=== PATIENT | female | born 1965 | race African-American/Black ===

== ENCOUNTER → 2018-03-23 | Day surgery (SDC) | payer OTHER ==
[2018-03-09 11:19] VITALS: BMI 30.7
[~2018-03-23] MED LIST: BUPIVACAINE HCL/PF (5 MG/ML) 30 ML VIAL IJ ONE; CEFAZOLIN 2 GM in DEXTROSE 5%-WATER - 100 ML IVPB ONE; DEXAMETHASONE SOD PHOSPHATE 4 MG/1 ML VIAL ONE; DEXAMETHASONE SOD PHOSPHATE/PF 10 MG/ML SDV ONE; GABAPENTIN 300 MG CAPSULE (FP) ONE; GABAPENTIN 300 MG CAPSULE (FP) PO STA; LIDOCAINE 1%/EPI 1:100000 (20 ML MULTI DOSE VIAL) ONE; LIDOCAINE HCL/PF 2% SDV 5ML VIAL ONE; MIDAZOLAM HCL 2 MG/2 ML SINGLE DOSE VIAL ONE; ONDANSETRON 4 MG/2 ML VIAL ONE; PROPOFOL 20 ML ONE; SUCCINYLCHOLINE CHLORIDE 200 MG/10 ML VIAL ONE; THROMBIN (BOVINE) 5,000 UNIT VIAL TP ONE; fentaNYL CITRATE 250 MCG/5 ML VIAL ONE; oxyCODONE HCL 10 MG SUSTAINED ACTING TABLET ONE; oxyCODONE HCL 10 MG SUSTAINED ACTING TABLET PO STA
--- NOTE | 2018-03-23 07:31 | HP ---
History & Physical Update - History History: No Change - Physical Physical: No Change - Assessment Assessment: No Change - Plan Plan: No Change (Initial H&P completed on 03/09/2018 by Aneta Patel NP. No new complaints or medications.)
--- NOTE | 2018-03-23 09:10 | PN ---
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 Pt evaluated in holding area, consented, and nerve block done under midazolam sedation without event. 20 minutes after block completed patient noted to be coughing and retching. Upon questioning, patient states that she has been coughing "a lot " beginning yesterday. During her coughing fit she became red, blotchy and stated that she felt like "something was stuck in her throat". She continued to cough a produce a copious amount of sputum. She was clear to auscultation. Initial VS are HR 127, BP 162/98, O2 Sat 100, RR 20. 50mg IV benadryl given, patient placed on monitor in PACU for observation. Redness resolved within minutes, coughing subsided. Repeat VS HR 93, BP 153/90, O2 Sat 100, RR 16. Discussed with Dr. Wall, agreed to reschedule surgery after this acute URI has passed. Patient to go home with follow up with PMD today.
[2018-03-23 10:48] VITALS: TEMP 98.1
[2018-03-23 11:31] VITALS: BP 143/87; PULSE 85
== END | disposition home or self-care (01) ==
LOC: FASUSAT 06:20
PROVIDERS: ATTEND Orthopaedic Surgery Orthopaedic Surgery of the Spine
PROC: 0RG10A0 Fusion of Cervical Vertebral Joint with Interbody Fusion Device, Anterior Approach, Anterior Column, Open Approach (ICD-10-PCS; 2018-03-23)
PROC: 0RG10K0 Fusion of Cervical Vertebral Joint with Nonautologous Tissue Substitute, Anterior Approach, Anterior Column, Open Approach (ICD-10-PCS; 2018-03-23)
PROC: 0RB30ZZ Excision of Cervical Vertebral Disc, Open Approach (ICD-10-PCS; principal; 2018-03-23 09:45)
DX: M48.02 Spinal stenosis, cervical region (principal); Z53.09 Procedure and treatment not carried out because of other contraindication; R05 Cough
CPT/HCPCS: 94760

== ENCOUNTER 2020-04-24 09:16 | Emergency (ER) | payer OTHER ==
[2020-04-24] MEDS ORDERED: ASPIRIN 325 MG ENTERIC COATED TABLET (FP) PO ONE (09:44)
[2020-04-24] MEDS ORDERED: ASPIRIN 325 MG ENTERIC COATED TABLET (FP) ONE (09:55)
[2020-04-24] MEDS ORDERED: ACETAMINOPHEN 1000 MG/100 ML VIAL (NON FORMULARY) IVPB ONE (10:04)
[2020-04-24] MEDS ORDERED: ACETAMINOPHEN INJECTION 100 ML IVPB ONE (10:26)
[2020-04-24 10:31] LABS: BASO % 0.7 % (0-2.0); EOS % 0.6 % (0-4.5); HEMATOCRIT 39.5 % (32.4-45.2); HEMOGLOBIN 14.3 GM/dL (10.7-15.3); LYMPH % 38.1 % (8-40); MCH 28.7 pg (25.7-33.7); MCHC 36.2 g/dl (32.0-36.0); MEAN CELL VOLUME 79.2 fl (80-96); MEAN PLT VOLUME 7.9 fl (7.5-11.1); NEUT % 51.6 % (42.8-82.8); PLATELET COUNT 313 K/MM3 (134-434); RBC 4.99 M/mm3 (3.60-5.2); RDW 14.2 % (11.6-15.6); WHITE BLOOD COUNT 7.3 K/mm3 (4.0-10.0)
[2020-04-24 10:33] LABS: INR 0.89 (0.83-1.09)
[2020-04-24 10:36] LABS: ACTIVATED PTT 31.5 SECONDS (25.2-36.5)
[2020-04-24 10:44] LABS: POTASSIUM 4.1 mmol/L (3.5-5.1)
[2020-04-24 10:46] LABS: CALCIUM 9.7 mg/dL (8.5-10.1)
[2020-04-24 10:47] LABS: ALBUMIN 4.1 g/dl (3.4-5.0); BLOOD UREA NITROGEN 13.7 mg/dL (7-18)
[2020-04-24 10:51] LABS: BILIRUBIN,TOTAL 0.4 mg/dL (0.2-1); TOT PROT 7.8 g/dl (6.4-8.2)
[2020-04-24 11:16] VITALS: BMI 30.7
[2020-04-24] MEDS ORDERED: IBUPROFEN 400 MG TABLET (FP) PO ONE (12:26)
[2020-04-24 15:04] VITALS: BP 111/68; PULSE 61; TEMP 98.1
== END 2020-04-24 15:00 | disposition home or self-care (01) ==
LOC: JER 09:16
PROC: 3E0333Z Introduction of Anti-inflammatory into Peripheral Vein, Percutaneous Approach (ICD-10-PCS; principal; 2020-04-24)
DX: R07.9 Chest pain, unspecified (principal)
CPT/HCPCS: 36415; 71045-TC-FY; 71275-TC; 80053; 83735; 84484; 85025; 85610; 85730; 93005; 93010; 99285-25; J0131; Q9967